=== PATIENT | female | born 1960 | race Caucasian/White ===

== ENCOUNTER 2023-12-20 05:30 | Day surgery (SDC) | payer OTHER ==
[2023-12-17 14:41] VITALS: BMI 31.7
[2023-12-20 08:19] VITALS: TEMP 97.2
[2023-12-20 08:57] VITALS: RESP 15
[2023-12-20 08:58] VITALS: BP 116/64; PULSE 70
[2023-12-20 10:16] LABS: ALBUMIN 4.1 g/dl (3.4-5.0)
[2023-12-20 10:19] LABS: BILIRUBIN,DIRECT 0.1 mg/dL (0.0-0.2)
[2023-12-20 10:21] LABS: BILIRUBIN,TOTAL 0.4 mg/dL (0.2-1); TOT PROT 6.9 g/dl (6.4-8.2)
[2023-12-22 00:10] LABS: ALPHA 2 MACROGLOBULINS,QN 107 mg/dL (110-276); ALT(SGPT)P5P 21 IU/L (0-40); APOLIPOPROTEIN A-1. 154 mg/dL (116-209); CHOLESTEROL TOTAL 305 mg/dL (100-199); GLUCOSE SERUM 107 mg/dL (70-99)
== END 2023-12-20 09:35 | disposition home or self-care (01) ==
LOC: JASU-ENDO 05:30
PROVIDERS: ATTEND Internal Medicine Gastroenterology
PROC: 0DB78ZX Excision of Stomach, Pylorus, Via Natural or Artificial Opening Endoscopic, Diagnostic (ICD-10-PCS; 2023-12-20)
PROC: 0DB68ZX Excision of Stomach, Via Natural or Artificial Opening Endoscopic, Diagnostic (ICD-10-PCS; 2023-12-20)
PROC: 0DB98ZX Excision of Duodenum, Via Natural or Artificial Opening Endoscopic, Diagnostic (ICD-10-PCS; principal; 2023-12-20 08:30)
DX: K29.50 Unspecified chronic gastritis without bleeding (principal)
CPT/HCPCS: 36415; 80076; 82103; 82390; 83516; 86038; 88305-TC; 88342-TC

== ENCOUNTER 2024-01-20 04:38 | Day surgery (SDC) | payer OTHER ==
[2024-01-19 10:35] VITALS: BMI 32.0
[2024-01-20 11:19] VITALS: TEMP 98.4
[2024-01-20 11:31] VITALS: BP 113/68; PULSE 63; RESP 17
== END 2024-01-20 11:27 | disposition home or self-care (01) ==
LOC: JASU-ENDO 04:38
PROVIDERS: ATTEND Internal Medicine Gastroenterology
PROC: 0DJD8ZZ Inspection of Lower Intestinal Tract, Via Natural or Artificial Opening Endoscopic (ICD-10-PCS; principal; 2024-01-20 09:45)
DX: Z12.11 Encounter for screening for malignant neoplasm of colon (principal); K64.8 Other hemorrhoids